=== PATIENT | male | born 1935 | race Caucasian/White ===

== ENCOUNTER 2017-05-29 21:02 | Inpatient (IN) | payer MEDICARE, BC ==
[~2017-05-29] VITALS: Ht 175.3 cm; Wt 79.5 kg
--- NOTE | ~2017-05-29 | PN ---
PATIENT:TUNG CALI MEDICAL RECORD: [id number] LOCATION:ADA Montemayor ADMISSION DATE: 05/29/17 PROGRESS NOTE DATE OF SERVICE: 06/07/2017 SUBJECTIVE: No new complaint is offered. The patient had complained of constipation. OBJECTIVE: On exam, the patient is fairly pleasant. Arrangements have been made for transfer to [facility]. The patient is tolerating medications well. Affect is bland. Speech is somewhat terse. Content of thought focuses on somatic concerns. Sensorium shows no change. ASSESSMENT: No change in diagnoses. PLAN: 1. Continue current medications. 2. Anticipate discharge tomorrow. TRANSINT:[id number] Voice Confirmation ID: [id number] DOCUMENT ID: [id number] RAYO MCGUIRE III, MD at 0644 CC: [id number] DICTATION DATE: 06/07/17 1122 SOFT SUGAR CUTTER: 06/07/17 1244 ADM IN [place] [id number] [place] [address]
--- NOTE | ~2017-05-29 | PN ---
PATIENT:TUNG CALI MEDICAL RECORD: [id number] LOCATION:ADA OcampoMiranda ADMISSION DATE: 05/29/17 PROGRESS NOTE DATE OF SERVICE: 06/06/2017 SUBJECTIVE: The patient's case was discussed with staff. He has no new complaint. OBJECTIVE: The patient is in good behavioral control with poor insight about his condition. He tolerates his medicines well. ASSESSMENT: No change in diagnoses. PLAN: Supportive and educational interventions were made. Current medicines will be maintained. TRANSINT:[id number] Voice Confirmation ID: [id number] DOCUMENT ID: [id number] DONNA BRYANT MD at 1409 CC: [id number] DICTATION DATE: 06/06/17 1028 VICE PRESIDENT SAFETY: 06/06/17 1645 ADM IN [address] [address]
--- NOTE | ~2017-05-29 | PN ---
PATIENT:TUNG CALI MEDICAL RECORD: [id number] LOCATION:ADA Montemayor ADMISSION DATE: 05/29/17 PROGRESS NOTE DATE OF SERVICE: 06/03/2017 SUBJECTIVE: No new complaint. OBJECTIVE: The patient continues to do fairly well. No further aggressiveness noted in the last 24 hours. On exam, mood is euthymic. Affect is pleasant and bland. Speech is tangential. Content of thought shows no overt psychosis. Sensorium shows no change. ASSESSMENT: No change in diagnosis. PLAN: 1. Maintain current medication. 2. Continue supportive therapy. TRANSINT:[id number] Voice Confirmation ID: [id number] DOCUMENT ID: [id number] RAYO MCGUIRE III, MD at 1013 CC: [id number] DICTATION DATE: 06/03/17 1214 ALLOCATION ANALYST: 06/03/17 1248 ADM IN [id number] [place] [address]
--- NOTE | ~2017-05-29 | PN ---
PATIENT:TUNG CALI MEDICAL RECORD: [id number] LOCATION:ADA CorderoMichaelMiranda ADMISSION DATE: 05/29/17 PROGRESS NOTE DATE OF SERVICE: 06/05/2017 SUBJECTIVE: The patient's case was discussed with staff. He has no new complaint. OBJECTIVE: The patient is in good behavioral control with limited insight about his condition. He tolerates his medicines well. ASSESSMENT: No change in diagnoses. PLAN: Brief supportive and educational interventions were made. Long-term prognosis is guarded. TRANSINT:[id number] Voice Confirmation ID: [id number] DOCUMENT ID: [id number] DONNA BRYANT MD at 1001 CC: [id number] DICTATION DATE: 06/05/17 1152 MIX HOUSE OPERATOR: 06/05/17 1205 ADM IN [place] [id number] [place] [address]
--- NOTE | ~2017-05-29 | PN ---
PATIENT:TUNG CALI MEDICAL RECORD: [id number] LOCATION:ConsueloALMASariah ConsueloMichaelMiranda ADMISSION DATE: 05/29/17 PROGRESS NOTE DATE OF SERVICE: 06/04/2017 SUBJECTIVE: The patient's case was discussed with staff. He has no new complaint. OBJECTIVE: The patient is in good behavioral control with limited insight about his condition. He tolerates his medicines well. ASSESSMENT: No change in diagnoses. PLAN: Current medicines have been reviewed and will be maintained. Long-term prognosis is guarded. TRANSINT:[id number] Voice Confirmation ID: [id number] DOCUMENT ID: [id number] DONNA BRYANT MD at 1130 CC: [id number] DICTATION DATE: 06/04/17 1445 IMPORT/EXPORT FREIGHT FORWARDER: 06/04/17 1554 ADM IN [place] [place] [address]
--- NOTE | ~2017-05-29 | PSY ---
PATIENT NAME:TUNG CALI MEDICAL RECORD: [id number] : 33 LOCATION:ConsueloLALO Graves ADMISSION DATE: 05/29/17 ACCOUNT: [id number] PSYCHIATRIC EVALUATION DATE OF EVALUATION: 05/31/17 IDENTIFYING DATA: This is the first known psychiatric hospitalization for this 81-year-old white male . HISTORY OF PRESENT ILLNESS: The patient's family had requested admission, the patient has been repeatedly wandering away from his daughter's home, where he has been living recently. The patient has exhibited considerable confusion, particularly in the evenings. Daughter is quite concerned for his safety. On this most recent occasion, the police had to be called in order to locate him. The patient evidently has a history of declining cognitive status over the last several years, but as far as can be determined, he has not received formal treatment for it to this point. PAST MEDICAL HISTORY: Significant for hypertension, cardiac arrhythmias, coronary artery disease, gastroesophageal reflux disease, hypothyroidism, type 2 diabetes, and osteoarthritis. PAST SURGICAL HISTORY: Includes some type of abdominal surgery perhaps more than one occasion and details are not known. The patient also has had back surgery. MEDICATION: At the time of admission included atenolol 25 mg daily, levothyroxine 175 mcg daily, Prevacid 30 mg daily, Zantac 150 mg twice a day, Ultram on a p.r.n. basis, aspirin 81 mg daily, Naprosyn 20 mg twice a day, and p.r.n. Xanax. FAMILY HISTORY: Noncontributory. SOCIAL HISTORY: As mentioned, the patient is a . He worked in the past in [employer]. He does have a past smoking history, but denies alcohol or drug use. He does have a daughter who is actively involved in his care. MENTAL STATUS: On interview, the patient is very pleasant but confused. He is casually dressed and neatly groomed. Mood is euthymic and very cordial. Affect is bland. Speech tends to be tangential. Content of thought is negative for overt psychosis. On sensorium testing, the patient is oriented to person and the fact that he is somewhere near [place], although he is not sure. Remote recall shows significant deficits. The patient has a great deal of difficulty recalling past events, names, and circumstances. Intermediate and short-term recall are very severely impaired. Concentration is quite poor. 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 AXIS II: No diagnosis. AXIS III: Type 2 diabetes, hyperlipidemia, hypothyroidism, osteoarthritis, coronary artery disease, cardiac arrhythmias, gastroesophageal reflux disease, and hypertension. AXIS IV: Moderate. AXIS V: 36. PLAN: 1. The patient is admitted for more thorough medical and psychiatric evaluation. 2. Medication adjustment as indicated. 3. Daily supportive therapy. TRANSINT:[id number] Voice Confirmation ID: [id number] DOCUMENT ID: [id number] RAYO MCGUIRE III, MD at 0909 CC: [id number] DICTATION DATE: 05/31/17 1043 BRILLIANDEER LOOPER: 05/31/17 1202 ADM IN [facility] [address] [place] [address]
--- NOTE | ~2017-05-29 | PN ---
PATIENT:TUNG CALI MEDICAL RECORD: [id number] LOCATION:ADA Montemayor ADMISSION DATE: 05/29/17 PROGRESS NOTE DATE OF SERVICE: 06/02/2017 SUBJECTIVE: No new complaint is noted. OBJECTIVE: Staff reports the patient did become somewhat more agitated and paranoid last night. This morning, he is more euthymic. On exam, affect is fairly bland. Speech is tangential. Content of thought negative for overt psychosis. Plans are for placement at [facility] in [place] when the patient is stabilized. Sensorium is unchanged. ASSESSMENT: No change in diagnosis. PLAN: 1. Maintain current medication. 2. Continue supportive therapy. TRANSINT:[id number] Voice Confirmation ID: [id number] DOCUMENT ID: [id number] RAYO MCGUIRE III, MD at 2052 CC: [id number] DICTATION DATE: 06/02/17 1055 PACKING HOUSE LABORER: 06/02/17 1128 ADM IN [place] [id number] [place] [id number]
--- NOTE | ~2017-05-29 | PN ---
PATIENT:TUNG CALI MEDICAL RECORD: [id number] LOCATION:ADA Montemayor ADMISSION DATE: 05/29/17 PROGRESS NOTE DATE OF SERVICE: 06/01/2017 SUBJECTIVE: No new complaint. OBJECTIVE: The patient continues to be confused. He does require some redirection. He has not been combative or agitated. On exam, mood is euthymic. Affect is childlike and simple. Speech is rather terse. Content of thought negative for overt psychosis. Sensorium is unchanged. ASSESSMENT: No change in diagnosis. PLAN: 1. Staff will be assisting family regarding placement. 2. Continue current medications. 3. Continue supportive therapy. TRANSINT:[id number] Voice Confirmation ID: [id number] DOCUMENT ID: [id number] RAYO MCGUIRE III, MD at 1017 CC: [id number] DICTATION DATE: 06/01/17 1033 ELECTROSLAG WELDING MACHINE OPERATOR: 06/01/17 1244 ADM IN [facility] [address] [place] [address]
--- NOTE | ~2017-05-29 | DS ---
PATIENT:TUNG CALI :33 MEDICAL RECORD: [id number] DISCHARGE SUMMARY ADMISSION DATE: 05/29/17 DISCHARGE DATE: 06/08/17 DATE OF ADMISSION: 05/29/2017 DATE OF DISCHARGE: 06/08/2017 HISTORY: First known psychiatric hospitalization for this 81-year-old white male . The patient had been admitted at the request of family because he had been repeatedly wandering away from his daughter's home. He had been showing increasing confusion. The police had to be called in order to locate him on this most recent occasion. For further details, please see previously dictated history. COURSE IN THE HOSPITAL: The patient was seen in consultation by Dr. Escobedo, who noted the presence of hypertension, coronary artery disease, chronic arrhythmias, hypothyroidism, type 2 diabetes, hyperlipidemia, and osteoarthritis. The patient was started on Aricept 5 mg at bedtime following admission. Aside from this, he was not given routine psychotropic medications. He showed a very rapid resolution of his anxiety. Repeated mental status testing indicated a significant dementia. The patient's family will be pursuing placement. Aside from this, the patient was maintained on a protocol for his diabetes as well as Lipitor, Protonix, Tenormin for his hypertension, Pepcid, and Naprosyn. By the time of discharge, the patient had stabilized considerably. 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 AXIS II: No diagnosis. AXIS III: Type 2 diabetes, hyperlipidemia, hypothyroidism, osteoarthritis, coronary artery disease, cardiac arrhythmias, gastroesophageal reflux disease, and hypertension. AXIS IV: Moderate. AXIS V: 40. PLAN: 1. The patient is discharged on current medication. 2. Diet and activities as tolerated. 3. Follow up with primary care. TRANSINT:[id number] Voice Confirmation ID: [id number] DOCUMENT ID: [id number] RAYO MCGUIRE III, MD at 0736 CC: [id number] DICTATION DATE: 06/08/17 1138 OUTSIDE SALES ASSOCIATE: 06/09/17 0827 DIS IN 06/08/17 [facility] [address] [place] [address]
[2017-05-29] MEDS ORDERED: TENORMIN25 MG PO (22:07)
[2017-05-29] MEDS ORDERED: LEVOTHYROXINE175 MCG PO (22:08)
[2017-05-29] MEDS ORDERED: PREVACID30 MG PO (22:08)
[2017-05-29] MEDS ORDERED: ZANTAC150 MG PO (22:08)
[2017-05-29] MEDS ORDERED: ULTRAM50 MG PO (22:09)
[2017-05-29] MEDS ORDERED: BAYER CHEWABLE81 MG PO (22:10)
[2017-05-29] MEDS ORDERED: ATIVAN0.5 MG PO (22:12)
[2017-05-29] MEDS ORDERED: CALTRATE+D3 PL1 EACH PO (22:14)
[2017-05-29] MEDS ORDERED: NAPROXEN SODIU220 M1 PO (22:15)
[2017-05-30] MEDS ORDERED: XANAX0.25 MG PO (02:58)
[2017-05-30 06:17] VITALS: BP 140/92; BMI 26.9
[2017-05-30 06:48] LABS: BASOPHILS 0.1 % (0-2); EOSINOPHILS 1.6 % (0-7); HEMATOCRIT 47.9 % (42.0-54.0); HEMOGLOBIN 15.7 g/dL (13.5-17.5); IMMATURE GRANULOCYTES 0.3 % (0-5); LYMPHOCYTES 22.5 % (15-50); MCH 25.5 pg (26.0-34.0); MCHC 32.8 g/dL (31.0-37.0); MCV 77.8 fL (80.0-100.0); MEAN PLATELET VOLUME 9.3 fL (7.4-10.4); MONOCYTES 9.9 % (2-11); NEUTROPHILS 65.6 % (40-80); PLATELET COUNT 159 10x3/uL (130-400); RBC 6.16 10x6/uL (4.20-6.10); RDW 14.7 % (11.5-14.5); WBC 7.6 10x3/uL (4.8-10.8)
[2017-05-30 07:00] VITALS: BP 124/87
[2017-05-30 07:13] LABS: ALBUMIN 3.6 g/dL (3.4-5.0); ANION GAP 13.4 mmol/L (8-16); BILIRUBIN - TOTAL 0.54 mg/dL (0.2-1.3); CALCIUM 8.9 mg/dL (8.5-10.1); CARBON DIOXIDE 29.5 mmol/L (21.0-32.0); CHOL - HDL RATIO 4.8 ratio (2.3-4.9); CREATININE - SERUM 1.2 mg/dL (0.6-1.3); LDL-HDL RATIO 3.2 ratio (1.5-3.5); POTASSIUM - SERUM 3.9 mmol/L (3.5-5.1); PROTEIN - SERUM 7.7 g/dL (6.4-8.2); THYROID STIMULATING HORMONE 0.09 uIU/mL (0.36-3.74)
[2017-05-30 11:22] LABS: APPEARANCE CLEAR (CLEAR); BILIRUBIN NEGATIVE (NEGATIVE); COLOR YELLOW (YELLOW); GLUCOSE NEGATIVE (NEGATIVE); KETONE NEGATIVE (NEGATIVE); NITRITE NEGATIVE (NEGATIVE); PROTEIN TRACE mg/dL (NEGATIVE); SPECIFIC GRAVITY 1.015 (1.005-1.020); UROBILINOGEN NORMAL (NORMAL)
[2017-05-30 11:25] LABS: BACTERIA FEW /hpf (NONE SEEN); EPITHELIAL CELLS RARE /hpf (0-5); HYALINE CAST RARE /lpf (NONE SEEN); RED CELLS - URINE 0-5 /hpf (0-5); WHITE CELLS - URINE OCC /hpf (0-5)
[2017-05-30 19:04] VITALS: BP 121/75
[2017-05-31 07:00] VITALS: BP 123/80
[2017-05-31 19:25] VITALS: BP 137/83
[2017-06-01 07:29] LABS: RAPID PLASMA REAGIN Non Reactive (Non Reactive)
[2017-06-01 07:59] VITALS: BP 138/81
[2017-06-01 08:22] LABS: VITAMIN D 25 HYDROXY 54.2 ng/mL (30.0-100.0)
[2017-06-01 08:33] VITALS: BMI 25.9
[2017-06-01 09:17] LABS: FOLATE (FOLIC ACID) - SERUM >20.0 ng/mL (>3.0)
[2017-06-01 10:49] VITALS: Ht 175.3 cm; Wt 79.5 kg
[2017-06-01 22:00] VITALS: BP 124/81
[2017-06-02 08:17] VITALS: BP 149/93
[2017-06-02 19:38] VITALS: BP 148/78
[2017-06-03 08:50] VITALS: BP 127/72
[2017-06-03 19:41] VITALS: BP 120/73
[2017-06-04 08:47] VITALS: BP 139/84
[2017-06-04 19:17] VITALS: BP 113/68
[2017-06-05 19:40] VITALS: BP 121/781
[2017-06-06 07:00] VITALS: BP 129/77
[2017-06-06 20:25] VITALS: BP 144/75
[2017-06-07 08:30] VITALS: BP 117/81
[2017-06-07] MEDS ORDERED: ARICEPT5 MG PO (11:12)
[2017-06-07] MEDS ORDERED: LIPITOR10 MG PO (11:12)
[2017-06-07 21:02] VITALS: BP 111/65
[2017-06-08 07:46] VITALS: BP 130/83
== END 2017-06-08 13:40 | DRG 57 ==
LOC: D.PSYCH 21:02
PROVIDERS: Psychiatry & Neurology Psychiatry
DX: G30.9 Alzheimer's disease, unspecified (principal); F02.81 Dementia in other diseases classified elsewhere, unspecified severity, with behavioral disturbance; E11.9 Type 2 diabetes mellitus without complications; E78.5 Hyperlipidemia, unspecified; E03.9 Hypothyroidism, unspecified; M19.90 Unspecified osteoarthritis, unspecified site; I25.10 Atherosclerotic heart disease of native coronary artery without angina pectoris; K21.9 Gastro-esophageal reflux disease without esophagitis; I48.2 Chronic atrial fibrillation; I10 Essential (primary) hypertension; F41.9 Anxiety disorder, unspecified

== ENCOUNTER 2017-10-15 16:30 | Inpatient (IN) | payer MEDICARE ==
[~2017-10-15] VITALS: Ht 172.7 cm; Wt 87.1 kg
--- NOTE | ~2017-10-15 | PN ---
PATIENT:TUNG CALI MEDICAL RECORD: [id number] LOCATION:ADA Montemayor ADMISSION DATE: 10/15/17 PROGRESS NOTE DATE OF SERVICE: 10/17/2017 SUBJECTIVE: The patient's case was discussed with staff. He has no new complaint. OBJECTIVE: The patient has been in good behavioral control and has made no statements about wanting to kill himself. He has pretty limited insight about his situation. ASSESSMENT: No change in diagnoses. PLAN: Supportive and educational interventions were made. Long-term prognosis is guarded. TRANSINT:[id number] Voice Confirmation ID: [id number] DOCUMENT ID: [id number] DONNA BRYANT MD at 1459 CC: [id number] DICTATION DATE: 10/17/17 1142 PIECE DYEING MACHINE TENDER: 10/17/17 1622 ADM IN [facility] [address] [place] [address]
--- NOTE | ~2017-10-15 | PN ---
PATIENT:TUNG CALI MEDICAL RECORD: [id number] LOCATION:ADA Montemayor ADMISSION DATE: 10/15/17 PROGRESS NOTE DATE OF SERVICE: 10/26/2017 SUBJECTIVE: The patient's case was discussed with staff. He has no new complaint. OBJECTIVE: The patient denies intent to harm himself or others. He does tolerate his medicines well. Eye contact is fair. ASSESSMENT: No change in diagnoses. PLAN: Supportive and educational interventions were made. The patient is going to be transitioned out of the hospital and back to the [facility] tomorrow. His long-term prognosis is guarded. TRANSINT:[id number] Voice Confirmation ID: [id number] DOCUMENT ID: [id number] DONNA BRYANT MD at 1339 CC: [id number] DICTATION DATE: 10/26/17 1426 DRAMATIC ARTS HISTORIAN: 10/26/17 1442 ADM IN [place] [place] [address]
--- NOTE | ~2017-10-15 | PN ---
PATIENT:TUNG CALI MEDICAL RECORD: [id number] LOCATION:ADA OcampoMiranda ADMISSION DATE: 10/15/17 PROGRESS NOTE DATE OF SERVICE: 10/25/2017 SUBJECTIVE: The patient's case was discussed with staff. He has no new complaint. OBJECTIVE: The patient is in good behavioral control with limited insight about his condition. He continues to have the same concern about his dental work, which I know he cannot remember what is being said to him, but he is asking for something to be done about it, even though it was repeatedly explained to him that cannot be done here. He has pretty poor insight about his situation. Interestingly or coincidentally it appears he may be developing a urinary tract infection. I say that based upon the fact that the UA that was collected looked quite cloudy. I will leave the evaluation and management of this to his primary care physician, but it certainly is likely to affect his behaviors here. TRANSINT:[id number] Voice Confirmation ID: [id number] DOCUMENT ID: [id number] DONNA BRYANT MD at 1406 CC: [id number] DICTATION DATE: 10/25/17 1135 MICROFILM DUPLICATING UNIT SUPERVISOR: 10/25/17 [address] [facility] [address] [place] [address]
--- NOTE | ~2017-10-15 | PN ---
PATIENT:TUNG CALI MEDICAL RECORD: [id number] LOCATION:ADA Montemayor ADMISSION DATE: 10/15/17 PROGRESS NOTE DATE OF SERVICE: 10/23/2017 SUBJECTIVE: The patient's case was discussed with staff. He has no new complaint. OBJECTIVE: The patient is in good behavioral control with limited insight about his condition. He does tolerate his medicines well. Eye contact is fair. He is ruminatively concerned about his dental work, which I am sure is valid. It is just that I have no ability to address that need here. ASSESSMENT: No change in diagnoses. PLAN: Supportive and educational interventions were made. I anticipate he can be transitioned out of the hospital soon. TRANSINT:[id number] Voice Confirmation ID: [id number] DOCUMENT ID: [id number] DONNA BRYANT MD at 1045 CC: [id number] DICTATION DATE: 10/23/17 1243 MILD DISABILITIES TEACHER: 10/23/17 1255 ADM IN [place] [id number] [place] [address]
--- NOTE | ~2017-10-15 | PN ---
PATIENT:TUNG CALI MEDICAL RECORD: [id number] LOCATION:ADA Montemayor ADMISSION DATE: 10/15/17 PROGRESS NOTE DATE OF SERVICE: 10/20/2017 SUBJECTIVE: The patient's case was discussed with staff. He has no new complaint. OBJECTIVE: The patient denies intent to harm himself or others. He generally tolerates his medicines well. He is severely impaired cognitively, but pleasant. ASSESSMENT: No change in diagnoses. PLAN: Current medicines have been reviewed and will be maintained. Long-term prognosis is guarded. Brief supportive and educational interventions were made. TRANSINT:[id number] Voice Confirmation ID: [id number] DOCUMENT ID: [id number] DONNA BRYANT MD at 1053 CC: [id number] DICTATION DATE: 10/20/17 1424 SPEEDOMETER MECHANIC: 10/20/17 1430 ADM IN [place] [id number] [place] [id number]
--- NOTE | ~2017-10-15 | PN ---
PATIENT:TUNG CALI MEDICAL RECORD: [id number] LOCATION:ADA Montemayor ADMISSION DATE: 10/15/17 PROGRESS NOTE DATE OF SERVICE: 10/24/2017 SUBJECTIVE: The patient's case was discussed with staff. He has no new complaint. OBJECTIVE: The patient is extremely confused. He has no suicidal thoughts. He is frustrated about a number of things, they tend to vary, but one consistent thing is his dental work and apparently a wire that is coming through the gum line. He insists that he was scheduled to see a dentist today, but for some reason, the dentist has not come. That is not correct, he is just confused, but I do not have the ability to get him to a dentist while he is an inpatient here. ASSESSMENT: No change in diagnoses. PLAN: Supportive and educational interventions were made. The patient will be transitioned out of the hospital soon. TRANSINT:[id number] Voice Confirmation ID: [id number] DOCUMENT ID: [id number] DONNA BRYANT MD at 1059 CC: [id number] DICTATION DATE: 10/24/17 1058 DIRECTOR OF SEARCH ENGINE OPTIMIZATION: 10/24/17 1107 ADM IN [facility] [address] [place] [address]
--- NOTE | ~2017-10-15 | PN ---
PATIENT:TUNG CALI MEDICAL RECORD: [id number] LOCATION:ADA Montemayor ADMISSION DATE: 10/15/17 PROGRESS NOTE DATE OF SERVICE: 10/19/2017 SUBJECTIVE: The patient's case was discussed with staff. He has no new complaint. OBJECTIVE: The patient slept a little better last night. He was given some Geodon at bedtime. His behavior today also seems to be a little better. ASSESSMENT: No change in diagnoses. PLAN: The patient will be maintained on current medicines, which I have reviewed. Brief supportive and educational interventions were made. His long-term prognosis is guarded. TRANSINT:[id number] Voice Confirmation ID: [id number] DOCUMENT ID: [id number] DONNA BRYANT MD at 1301 CC: [id number] DICTATION DATE: 10/19/17 1451 REGISTERED ASSOCIATE: 10/19/17 1505 ADM IN [facility] [address] [place] [address]
--- NOTE | ~2017-10-15 | PN ---
PATIENT:TUNG CALI MEDICAL RECORD: [id number] LOCATION:ADA Montemayor ADMISSION DATE: 10/15/17 PROGRESS NOTE DATE OF SERVICE: 10/27/2017 SUBJECTIVE: The patient's case was discussed with staff. He has no new complaint. OBJECTIVE: The patient denies intent to harm himself or others. He generally tolerates his medicines well. He is severely confused. ASSESSMENT: No change in diagnoses. PLAN: The patient will be transitioned out of the hospital and back to the shelter today. He has no evidence of acute or direct dangerousness to himself or others. TRANSINT:[id number] Voice Confirmation ID: [id number] DOCUMENT ID: [id number] DONNA BRYANT MD at 1234 CC: [id number] DICTATION DATE: 10/27/17 1400 WOUND NURSE: 10/27/17 1413 DIS IN 10/27/17 [place] [id number] [place] [address]
--- NOTE | ~2017-10-15 | PN ---
PATIENT:TUNG CALI MEDICAL RECORD: [id number] LOCATION:ADA Montemayor ADMISSION DATE: 10/15/17 PROGRESS NOTE DATE OF SERVICE: 10/21/2017 SUBJECTIVE: The patient's case was discussed with staff. He has no new complaint. OBJECTIVE: The patient is in good behavioral control with limited insight about his condition. He does tolerate his medicines well. PLAN: Current medicines have been reviewed and will be maintained. He will be transitioned back to the [facility] early next week if this level of improvement is maintained. TRANSINT:[id number] Voice Confirmation ID: [id number] DOCUMENT ID: [id number] DONNA BRYANT MD at 1322 CC: [id number] DICTATION DATE: 10/21/17 1203 CHEMICAL LABORATORY CHIEF: 10/21/17 1214 ADM IN [id number] [place] [address]
--- NOTE | ~2017-10-15 | PN ---
PATIENT:TUNG CALI MEDICAL RECORD: [id number] LOCATION:ADA Montemayor ADMISSION DATE: 10/15/17 PROGRESS NOTE DATE OF SERVICE: 10/22/2017 SUBJECTIVE: The patient's case was discussed with staff. He has no new complaint. OBJECTIVE: The patient denies intent to harm himself or others. He generally tolerates his medicines well. He is severely impaired cognitively and has no particular complaints today. ASSESSMENT: No change in diagnoses. PLAN: Supportive and educational interventions were made. The patient's medications have been reviewed. The office of long-term care has not returned his application for long-term placement and once that is completed, I anticipate he can be transitioned out of the hospital. TRANSINT:[id number] Voice Confirmation ID: [id number] DOCUMENT ID: [id number] DONNA BRYANT MD at 1223 CC: [id number] DICTATION DATE: 10/22/17 1451 FINANCIAL SYSTEMS ADMINISTRATOR: 10/22/17 1505 ADM IN [place] [id number] [place] [id number]
--- NOTE | ~2017-10-15 | PSY ---
PATIENT NAME:TUNG CALI MEDICAL RECORD: [id number] : 33 LOCATION:ADA Patterson ADMISSION DATE: 10/15/17 ACCOUNT: [id number] PSYCHIATRIC EVALUATION DATE OF EVALUATION: 10/16/17 IDENTIFYING DATA: The patient is 81 years old and he is admitted to the hospital on a voluntary basis. CHIEF COMPLAINT: None. HISTORY OF PRESENT ILLNESS: The patient lives in a [facility] in [place]. He has been a resident there for some time. He has a well-established diagnosis of dementia. He apparently has been upset at the fpc and has been threatening on more than one occasion to kill himself and asking for a gun. The patient is now calm and cooperative and does not remember making these suicidal threats. He denies being depressed. He also denies neurovegetative depressive symptoms. He is clearly severely impaired cognitively. PAST MEDICAL HISTORY: Significant for atrial fibrillation and coronary artery disease. PAST PSYCHIATRIC HISTORY: Significant for an established diagnosis of dementia along with some associated depressive and anxiety symptoms and a previous hospitalization here a few months ago for similar symptoms. FAMILY HISTORY: Unknown. ALLERGIES: AMBIEN, SULFA AND NITRATE ANALOGS. CURRENT MEDICATIONS: Include atenolol, Zantac, Synthroid, aspirin, Ativan, naproxen, Neurontin, Zoloft. SOCIAL HISTORY: The patient is a . He is from [place] and apparently functioned reasonably well there socially and occupationally. He has no history of drug or alcohol use and no history of recreational drug use. He did smoke cigarettes in the past, but now is a nonsmoker. MENTAL STATUS EXAMINATION: The patient is awake, alert and oriented to person and place, but not to time or situation. His mood is euthymic. His affect appropriate. Thought processes are goal directed. Memory, concentration, and abstraction abilities are moderately impaired and he denies any active intent to harm himself or others as well as overt psychotic symptoms. ASSETS: Supportive family members. LIABILITIES: Limited insight. DIAGNOSTIC IMPRESSION: AXIS I: Senile dementia of the Alzheimer's type with behavioral disturbances. AXIS II: None. AXIS III: Diabetes, hyperlipidemia, hypothyroidism, osteoarthritis, coronary artery disease, cardiac arrhythmia, gastroesophageal reflux disease and hypertension. AXIS IV: Moderate stressors. AXIS V: Global assessment of functioning is 30. PLAN: At this time, the patient is admitted to the hospital for a comprehensive medical, psychological, and social evaluation. He will be treated with both memory enhancing and mood stabilizing medications. His long-term prognosis is guarded. TRANSINT:[id number] Voice Confirmation ID: [id number] DOCUMENT ID: [id number] DONNA BRYANT MD at 1118 CC: [id number] DICTATION DATE: 10/16/17 1159 HAZARDOUS MATERIAL TECHNICIAN: 10/16/17 1336 ADM IN [place] [id number] [place] [address]
--- NOTE | ~2017-10-15 | PN ---
PATIENT:TUNG CALI MEDICAL RECORD: [id number] LOCATION:ADA Montemayor ADMISSION DATE: 10/15/17 PROGRESS NOTE DATE OF SERVICE: 10/18/2017 SUBJECTIVE: The patient's case was discussed with staff. He has no new complaint. OBJECTIVE: The patient denies intent to harm himself or others. He generally tolerates his medicines well. Eye contact is fair. Concentration is fair. ASSESSMENT: No change in diagnoses. PLAN: Current medicines have been reviewed and will be maintained. His long-term prognosis is guarded. I am going to give him a low dose of Geodon at bedtime to assist with his thought disorganization. TRANSINT:[id number] Voice Confirmation ID: [id number] DOCUMENT ID: [id number] DONNA BRYANT MD at 1434 CC: [id number] DICTATION DATE: 10/18/17 1528 METEOROLOGY PROFESSOR: 10/18/17 1633 ADM IN [place] [address] [place] [address]
--- NOTE | ~2017-10-15 | DS ---
PATIENT:TUNG CALI :33 MEDICAL RECORD: [id number] DISCHARGE SUMMARY ADMISSION DATE: 10/15/17 DISCHARGE DATE: 10/27/17 IDENTIFYING DATA: The patient is 81 years old and he was admitted to the hospital on a voluntary basis from a local custodial. The patient has been a resident there for a long time and he has a long established diagnosis of dementia. He became upset at the custodial and began threatening to kill himself and was asking for a gun. Apparently, he did this repeatedly. It was not an isolated event and the custodial staff was concerned enough that they felt he needed mental health treatment. HOSPITAL COURSE: The patient was admitted to the behavioral unit and fully evaluated from both a medical, psychological, and social standpoint. He was found to have an advanced dementia with a very low tolerance for frustration. He was not felt to be clinically depressed, just confused and unable to have much in the way of tolerance of difficulties. He was treated with both mood stabilizing and memory enhancing medications and did not have any thoughts of harming himself or others and was subsequently transitioned back to the custodial. DISCHARGE DIAGNOSES: AXIS I: Senile dementia of the Alzheimer's type with behavioral disturbances. AXIS II: None. AXIS III: Diabetes, hyperlipidemia, hypothyroidism, osteoarthritis, coronary artery disease, cardiac arrhythmia, gastroesophageal reflux disease, and hypertension. AXIS IV: Moderate stressors. AXIS V: Global assessment of functioning was 35. PLAN: At the time of discharge, the patient was in good behavioral control and did not represent an acute risk to himself or others. He is to have follow up with his primary care custodial physician. Although not listed on his [place] diagnoses, he has some problem with his teeth. Apparently, there is a wire that is protruding behind his upper front incisors and it is bothering him and he clearly needs more extensive dental work and the custodial was asked to schedule a dental appointment for him. TRANSINT:[id number] Voice Confirmation ID: [id number] DOCUMENT ID: [id number] DONNA BRYANT MD at 1243 CC: [id number] DICTATION DATE: 10/29/17 1228 VP SOFTWARE: 10/29/17 1235 DIS IN 10/27/17 [place] [id number]
[~2017-10-15 16:30] MED LIST: ARICEPT5 MG PO; ATIVAN0.5 MG PO; BAYER CHEWABLE81 MG PO; CALTRATE+D3 PL1 EACH PO; LEVOTHYROXINE175 MCG PO; LIPITOR10 MG PO; NAPROXEN SODIU220 M1 PO; PREVACID30 MG PO; TENORMIN25 MG PO; ULTRAM50 MG PO; XANAX0.25 MG PO; ZANTAC150 MG PO
[2017-10-15 17:26] VITALS: BP 126/74; BMI 31.0
[2017-10-15 18:17] LABS: APPEARANCE CLEAR (CLEAR); BILIRUBIN NEGATIVE (NEGATIVE); COLOR YELLOW (YELLOW); GLUCOSE NEGATIVE (NEGATIVE); KETONE NEGATIVE (NEGATIVE); NITRITE NEGATIVE (NEGATIVE); PROTEIN TRACE mg/dL (NEGATIVE); UROBILINOGEN NORMAL (NORMAL)
[2017-10-15] MEDS ORDERED: NEURONTIN 300300 MG PO (18:18)
[2017-10-15] MEDS ORDERED: ZOLOFT50 MG PO (18:21)
[2017-10-15 20:35] VITALS: BP 121/76
[2017-10-16 05:39] LABS: BASOPHILS 0.1 % (0-2); EOSINOPHILS 1.9 % (0-7); HEMATOCRIT 43.4 % (42.0-54.0); HEMOGLOBIN 13.9 g/dL (13.5-17.5); IMMATURE GRANULOCYTES 0.4 % (0-5); LYMPHOCYTES 19.9 % (15-50); MCV 77.9 fL (80.0-100.0); MEAN PLATELET VOLUME 10.1 fL (7.4-10.4); MONOCYTES 11.4 % (2-11); NEUTROPHILS 66.3 % (40-80); PLATELET COUNT 153 10x3/uL (130-400); RBC 5.57 10x6/uL (4.20-6.10); RDW 14.6 % (11.5-14.5); WBC 8.9 10x3/uL (4.8-10.8)
[2017-10-16 06:00] LABS: ANION GAP 7.5 mmol/L (8-16); BILIRUBIN - TOTAL 0.42 mg/dL (0.2-1.3); CALCIUM 8.3 mg/dL (8.5-10.1); CARBON DIOXIDE 30.3 mmol/L (21.0-32.0); CHOL - HDL RATIO 5.1 ratio (2.3-4.9); CREATININE - SERUM 1.2 mg/dL (0.6-1.3); LDL-HDL RATIO 3.5 ratio (1.5-3.5); POTASSIUM - SERUM 3.8 mmol/L (3.5-5.1); PROTEIN - SERUM 6.5 g/dL (6.4-8.2); THYROID STIMULATING HORMONE 0.59 uIU/mL (0.36-3.74)
[2017-10-16 09:37] VITALS: BP 133/81
[2017-10-16 10:12] VITALS: Ht 172.7 cm; Wt 87.1 kg
[2017-10-16 19:21] VITALS: BP 139/79
[2017-10-17 08:00] VITALS: BP 134/76
[2017-10-17 19:25] VITALS: BP 134/77
[2017-10-18 08:15] VITALS: BP 100/71
[2017-10-18 11:16] LABS: FOLATE (FOLIC ACID) - SERUM 13.3 ng/mL (>3.0)
[2017-10-18 19:34] VITALS: BP 146/69
[2017-10-19 07:55] VITALS: BP 128/84
[2017-10-19 22:01] VITALS: BP 115/65
[2017-10-20 09:00] VITALS: BP 116/71
[2017-10-20 19:06] VITALS: BP 124/65
[2017-10-21 10:35] VITALS: BP 106/67
[2017-10-21 22:38] VITALS: BP 140/72
[2017-10-22 10:25] VITALS: BP 132/82
[2017-10-22 21:17] VITALS: BP 104/60
[2017-10-23 10:13] VITALS: BP 109/70
[2017-10-23 21:12] VITALS: BP 109/66
[2017-10-24 09:29] VITALS: BP 99/60
[2017-10-24 19:27] VITALS: BP 129/80
[2017-10-25 08:00] VITALS: BP 106/68
[2017-10-25 11:58] LABS: APPEARANCE CLEAR (CLEAR); BILIRUBIN NEGATIVE (NEGATIVE); COLOR YELLOW (YELLOW); GLUCOSE NEGATIVE (NEGATIVE); KETONE NEGATIVE (NEGATIVE); NITRITE NEGATIVE (NEGATIVE); PROTEIN NEGATIVE (NEGATIVE); UROBILINOGEN NORMAL (NORMAL)
[2017-10-25 12:00] LABS: WHITE CELLS - URINE OCC /hpf (0-5)
[2017-10-25 12:15] LABS: BASOPHILS 0.2 % (0-2); EOSINOPHILS 1.4 % (0-7); HEMATOCRIT 44.9 % (42.0-54.0); HEMOGLOBIN 14.4 g/dL (13.5-17.5); IMMATURE GRANULOCYTES 0.4 % (0-5); LYMPHOCYTES 16.4 % (15-50); MCH 25.5 pg (26.0-34.0); MCHC 32.1 g/dL (31.0-37.0); MCV 79.6 fL (80.0-100.0); MEAN PLATELET VOLUME 9.9 fL (7.4-10.4); MONOCYTES 11.3 % (2-11); NEUTROPHILS 70.3 % (40-80); PLATELET COUNT 183 10x3/uL (130-400); RBC 5.64 10x6/uL (4.20-6.10); RDW 14.7 % (11.5-14.5); WBC 10.3 10x3/uL (4.8-10.8)
[2017-10-25 19:17] VITALS: BP 126/72
[2017-10-26 08:00] VITALS: BP 122/73
[2017-10-26] MEDS ORDERED: XARELTO15 MG PO (14:19)
[2017-10-26] MEDS ORDERED: ARICEPT5 MG PO (14:19)
[2017-10-26] MEDS ORDERED: LIPITOR10 MG PO (14:20)
[2017-10-26] MEDS ORDERED: GEODON20 MG PO (14:21)
[2017-10-26] MEDS ORDERED: ORAJEL MM (14:21)
[2017-10-26] MEDS ORDERED: PROTONIX40 MG PO (14:21)
[2017-10-26] MEDS ORDERED: GLUCOPHAGE500 MG PO (14:22)
[2017-10-26] MEDS ORDERED: VITAMIN D31000 UNI2 PO (14:23)
[2017-10-26] MEDS ORDERED: KENALOG 0.1 % O15 GM TOPICAL (14:23)
[2017-10-26] MEDS ORDERED: NIZORAL 2 % SH120 ML TOPICAL (14:23)
[2017-10-26] MEDS ORDERED: VITAMIN B-121000 MCG PO (14:24)
[2017-10-26 20:15] VITALS: BP 121/69
[2017-10-27 10:53] VITALS: BP 116/64
== END 2017-10-27 17:45 | DRG 57 ==
LOC: D.PSYCH 16:30
PROVIDERS: Family Medicine; Psychiatry & Neurology Psychiatry
DX: G30.1 Alzheimer's disease with late onset (principal); F02.81 Dementia in other diseases classified elsewhere, unspecified severity, with behavioral disturbance; E11.40 Type 2 diabetes mellitus with diabetic neuropathy, unspecified; E78.5 Hyperlipidemia, unspecified; E03.9 Hypothyroidism, unspecified; M19.90 Unspecified osteoarthritis, unspecified site; I25.10 Atherosclerotic heart disease of native coronary artery without angina pectoris; K21.9 Gastro-esophageal reflux disease without esophagitis; I10 Essential (primary) hypertension; I48.2 Chronic atrial fibrillation; Z79.01 Long term (current) use of anticoagulants; F41.9 Anxiety disorder, unspecified; F32.9 Major depressive disorder, single episode, unspecified; R31.9 Hematuria, unspecified; K02.9 Dental caries, unspecified